=== PATIENT | female | born 1995 | race Caucasian/White ===

== ENCOUNTER 2018-11-15 15:24 | Outpatient (CLI) | payer MEDICAID ==
--- NOTE | 2018-11-15 21:36 | XRAY Report ---
Reason: KNEE PAIN,RIGHT Procedure Date: 11/15/2018 Accession Number: [id number] / [id number] Procedure: XR - Knee 4 View RT CPT Code: FULL RESULT: EXAM: RIGHT KNEE RADIOGRAPHY EXAM DATE: 11/15/2018 03:52 PM. CLINICAL HISTORY: KNEE PAIN,RIGHT. COMPARISON: None. TECHNIQUE: 3 views. FINDINGS: Bones: No acute fractures or suspicious bone lesions. Joints: No effusion. No subluxations. Joint spaces are preserved. Soft Tissues: Unremarkable. IMPRESSION: Unremarkable knee radiography. [facility]
== END 2018-11-15 15:25 | disposition home or self-care (01) ==
LOC: DI 15:24
PROVIDERS: ATTEND Physician Assistant Medical
DX: M25.561 Pain in right knee (principal)

== ENCOUNTER 2020-08-09 07:00 | Outpatient (CLI) | payer MEDICAID ==
[2020-08-09 15:59] LABS: BILIRUBIN,URINE NEGATIVE (NEGATIVE); GLUCOSE, URINE (UA) NEGATIVE (NEGATIVE); KETONES,URINE (UA) NEGATIVE (NEGATIVE); LEUKOCYTE ESTERASE, URINE SMALL (NEGATIVE); NITRITE,URINE NEGATIVE (NEGATIVE); OCCULT BLOOD,URINE NEGATIVE (NEGATIVE); PROTEIN,URINE NEGATIVE (NEGATIVE); UROBILINOGEN,URINE 0.2 (NORMAL) E.U./dL (NORMAL)
[2020-08-09 16:02] LABS: CLARITY,URINE CLEAR (CLEAR)
[2020-08-09 16:18] LABS: RBC,URINE None Seen /HPF (0-5)
[2020-08-09 16:19] LABS: BACTERIA,URINE Few /HPF (None Seen); SQUAMOUS EPITHELIAL CELL,UR FEW Squamous (<= Few)
[2020-08-09 21:15] LABS: TRICHOMONAS VAGINALIS DNA NEGATIVE (NEGATIVE)
== END 2020-08-09 23:59 | disposition home or self-care (01) ==
LOC: LAB.R 07:00
PROVIDERS: ATTEND Advanced Practice Midwife
DX: Z00.00 Encounter for general adult medical examination without abnormal findings (principal); Z11.3 Encounter for screening for infections with a predominantly sexual mode of transmission; Z87.440 Personal history of urinary (tract) infections
CPT/HCPCS: 81001; 87086; 87491; 87591; 87661